=== PATIENT | female | born 1970 | race Caucasian/White ===

== ENCOUNTER 2017-07-04 23:28 | Emergency (ER) | payer OTHER, MEDICAID ==
[~2017-07-04] VITALS: Ht 165.1 cm; Wt 104.4 kg
[~2017-07-04 23:28] MED LIST: DICL50TA3 PO; GLIP5TAB15 PO; GLYB1.2538 PO; LEVO175T2 PO
[2017-07-04 23:33] VITALS: BP 146/95; PULSE 88; RESP 16; TEMP 98.4; O2SAT 96
[2017-07-04] MEDS ORDERED: VITA1000 PO (23:55)
[2017-07-04] MEDS ORDERED: CANA100T PO (23:55)
[2017-07-04] MEDS ORDERED: LEVO175T2 PO (23:55)
[2017-07-05 00:07] LABS: BLOOD, URINE NEG (NEG); GLUCOSE,URINE 1000 OR GREATER mg/dL (NEG); KETONE, URINE NEG (NEG); NITRITE,URINE NEG (NEG); PH, URINE 5.5 (5.0-8.5)
--- NOTE | 2017-07-05 00:11 | PD ---
HPI Chief Complaint: Complaint Time Seen by Provider: 00:02 Travel History International Travel<30 days: No Contact w/Intl Traveler<30days: No Traveled to known affect area: No History of Present Illness HPI The patient is a 46-year-old female that complains of urgency and frequency for one month. She denies any dysuria. She denies any fever, nausea, vomiting or diarrhea. She does have some flank pain and some low back pain. The patient has diabetes and takes by Bydorian and invokana, for this. Her last sugar at home several days ago was in the 200 range. PFSH Past Medical History Blood Disorders: No Cancer: Yes (SKIN) Diabetes: Yes Patient Takes Glucophage: No Diminished Hearing: No Musculoskeletal: Yes (FRACTURED LEFT 5TH TOE) Thyroid Disease: Yes ?: Not Menopausal: Yes : 2 Para: 2 Tubal Ligation: Yes Past Surgical History Abdominal Surgery: Yes (HERNIA, RT HEMICOLECTOMY, COLOSTOMY W/REVERSAL) Cholecystectomy: Yes Hysterectomy: Yes Tonsillectomy: Yes Other Surgery: Yes (BASAL CELL CARCINOMA REMOVAL FACE) Social History Alcohol Use: Yes (ONCE AMONTH MAYBE) Tobacco Use: No Substance Use: No Allergies-Medications (Allergen,Severity, Reaction): Coded Allergies: No Known Allergies (Verified , 05/26/15) Reported Meds & Prescriptions Reported Meds & Active Scripts Active Reported Vitamin D-1000 (Cholecalciferol) 1,000 Unit Tab 1,000 Units PO DAILY Invokana (Canagliflozin) 100 Mg Tab 100 Mg PO DAILY Take before 1st meal of day. Levothyroxine (Levothyroxine Sodium) 175 Mcg Tab 175 Mcg PO DAILY Review of Systems Except as stated in HPI: all other systems reviewed are Neg Physical Exam Narrative GENERAL: Well-nourished, alert and oriented, obese patient in minimal apparent distress with her right flank pain and low back pain. Her vital signs show blood pressure 146/95 but otherwise normal. SKIN: Focused skin assessment warm/dry. HEAD: Normocephalic. EYES: No scleral icterus. No injection or drainage. NECK: Supple, trachea midline. No JVD or lymphadenopathy. CARDIOVASCULAR: Regular rate and rhythm without murmurs, gallops, or rubs. RESPIRATORY: Breath sounds equal bilaterally. No accessory muscle use. GASTROINTESTINAL: Abdomen soft, with some slight discomfort to direct palpation in the midline suprapubic area, nondistended. No guarding or rebound is present. There is some slight right flank tenderness present. MUSCULOSKELETAL: No cyanosis, or edema. I cannot reproduce any pain by pressing on the low back area. BACK: Nontender without obvious deformity. No CVA tenderness. Data Data Last Documented VS Vital Signs Date Time Temp Pulse Resp B/P (MAP) Pulse Ox O2 Delivery O2 Flow Rate FiO2 07/04/17 23:33 98.4 88 16 146/95 (112) 96 Orders Orders Urinalysis - C+S If Indicated (07/04/17 23:52) Blood Glucose (07/05/17 00:30) Labs Laboratory Tests Test 07/04/17 23:50 Urine Color YELLOW Urine Turbidity CLEAR Urine pH 5.5 Urine Specific [place] GREATER THAN 1.035 Urine Protein NEG mg/dL Urine Glucose (UA) 1000 OR GREATER mg/dL Urine Ketones NEG mg/dL Urine Occult Blood NEG Urine Nitrite NEG Urine Bilirubin NEG Urine Leukocyte Esterase NEG Urine RBC 0-2 /hpf Urine WBC 0-2 /hpf Urine Squamous Epithelial Cells 0-5 /hpf Urine Bacteria NONE /hpf Microscopic Urinalysis Comment CULT NOT INDICATED MDM Medical Decision Making Medical Screen Exam Complete: Yes Emergency Medical Condition: Yes Medical Record Reviewed: Yes Interpretation(s) The urine shows specific gravity greater than 1.035 with 1000 or greater glucose but is otherwise normal and culture is not indicated. The blood glucose by Accu-Chek is 200. Differential Diagnosis Cystitis, pyelonephritis, colitis-unlikely Narrative Course There is no evidence for urinary tract infection with a urine. Apparently, the patient is urinating frequently because of her elevated blood sugar. SHe should follow-up with her primary care physician. Diagnosis Primary Impression: Hyperglycemia Additional Impression: Poorly controlled diabetes mellitus Additional Instructions: As we discussed, follow-up with your primary care physician regarding the elevated blood sugar. Apparently this is the reason you are urinating so frequently. Med/Other Pt SpecificInfo: No Change to Meds Disposition: 01 DISCHARGE HOME Condition: Stable Joey Chow MD Jul 05, 2017 00:11
[2017-07-05 00:16] LABS: URINE COLOR YELLOW (YELLW/STRAW)
[2017-07-05 00:17] LABS: COMMENT (UR) CULT NOT INDICATED; CULTURE IF INDICATED CULT NOT INDICATED; RBC, URINE 0-2 /hpf (0-3); SQUAMOUS EPITHELIAL CELL URINE 0-5 /hpf (0-5); WBC, URINE 0-2 /hpf (0-5)
[2017-07-05] MEDS ORDERED: KETOROLAC TROMETHAMINE 60 MG/2 ML (IM) VIAL IM ONE (00:45)
== END 2017-07-05 01:05 | disposition home or self-care (01) ==
LOC: PHED 23:28
DX: E11.65 Type 2 diabetes mellitus with hyperglycemia (principal); R10.9 Unspecified abdominal pain; M54.5 Low back pain; E11.9 Type 2 diabetes mellitus without complications; E07.9 Disorder of thyroid, unspecified; Z79.899 Other long term (current) drug therapy
CPT/HCPCS: 81001; 96372; 99284; J1885

== ENCOUNTER 2017-08-09 12:19 | Emergency (ER) | payer OTHER, MEDICAID ==
[~2017-08-09] VITALS: Ht 165.1 cm; Wt 105.0 kg
[~2017-08-09 12:19] MED LIST changes: +CANA100T PO; -DICL50TA3 PO; -GLIP5TAB15 PO; -GLYB1.2538 PO; +VITA1000 PO
[2017-08-09 12:31] VITALS: BP 165/77; PULSE 78; RESP 16; TEMP 98; O2SAT 98
--- NOTE | 2017-08-09 13:05 | PD ---
HPI Chief Complaint: Skin Problem Time Seen by Provider: 13:03 Travel History International Travel<30 days: No Contact w/Intl Traveler<30days: No Traveled to known affect area: No History of Present Illness HPI 46-year-old female presents the emergency department with hot red swollen abscess to the proximal right thigh, which the patient states started several days ago. It is become more erythematous, swollen, and painful. She denies fever, chills, or previous history of similar abscess. Pain is currently 8 out of 10. She has no known drug allergies. PFSH Past Medical History Blood Disorders: No Cancer: Yes (SKIN) Diabetes: Yes Patient Takes Glucophage: No Diminished Hearing: No Musculoskeletal: Yes (FRACTURED LEFT 5TH TOE) Thyroid Disease: Yes Influenza Vaccination: Yes ?: Not Menopausal: Yes : 2 Para: 2 Tubal Ligation: Yes Past Surgical History Abdominal Surgery: Yes (HERNIA, RT HEMICOLECTOMY, COLOSTOMY W/REVERSAL) Cholecystectomy: Yes Genitourinary Surgery: Yes (Bladder x2) Hysterectomy: Yes Tonsillectomy: Yes Other Surgery: Yes (BASAL CELL CARCINOMA REMOVAL FACE, turmor removed from ankle) Social History Alcohol Use: Yes (ONCE AMONTH MAYBE) Tobacco Use: No Substance Use: No Allergies-Medications (Allergen,Severity, Reaction): Coded Allergies: No Known Allergies (Verified Adverse Reaction, Unknown, 08/09/17) Reported Meds & Prescriptions Reported Meds & Active Scripts Active Reported Invokana (Canagliflozin) 100 Mg Tab 100 Mg PO DAILY Take before 1st meal of day. Levothyroxine (Levothyroxine Sodium) 175 Mcg Tab 175 Mcg PO DAILY Review of Systems Except as stated in HPI: all other systems reviewed are Neg General / Constitutional: No: Fever Eyes: No: Visual changes HENT: No: Headaches Cardiovascular: No: Chest Pain or Discomfort Respiratory: No: Shortness of Breath Gastrointestinal: No: Abdominal Pain Genitourinary: No: Dysuria Musculoskeletal: No: Pain Skin: Positive Lesions (see history present illness.), No Rash Neurologic: No: Weakness Psychiatric: No: Depression Endocrine: No: Polydipsia Hematologic/Lymphatic: No: Easy Bruising Physical Exam Narrative GENERAL: Patient appears in mild distress. SKIN: Warm and dry. Normal color. Normal turgor. Patient has indurated, elevated, erythematous, warm abscess to the right proximal medial thigh with pointing, but without spontaneous drainage. Erythema measures approximately 3 cm x 6 cm HEAD: Atraumatic. Normocephalic. EYES: Pupils equal and round. No scleral icterus. No injection or drainage. ENT: No nasal bleeding or discharge. Mucous membranes pink and moist. NECK: Trachea midline. Supple and nontender. CARDIOVASCULAR: Regular rate and rhythm. RESPIRATORY: No accessory muscle use. Clear to auscultation. Breath sounds equal bilaterally. MUSCULOSKELETAL: Extremities without clubbing, cyanosis, or edema. No obvious deformities. NEUROLOGICAL: Awake and alert. No obvious cranial nerve deficits. Motor grossly within normal limits. Five out of 5 muscle strength in the arms and legs. Normal speech. PSYCHIATRIC: Appropriate mood and affect; insight and judgment normal. Data Data Last Documented VS Vital Signs Date Time Temp Pulse Resp B/P (MAP) Pulse Ox O2 Delivery O2 Flow Rate FiO2 08/09/17 12:31 98.0 78 16 165/77 (106) 98 Orders Orders Lidocai-Epi 1%-1:100,000 Inj (Xylocaine- (08/09/17 13:15) Wound Culture And Gram Stain (08/09/17 13:14) MDM Medical Decision Making Medical Screen Exam Complete: Yes Emergency Medical Condition: Yes Differential Diagnosis Cellulitis. Abscess. I&D. Possible MRSA. Narrative Course Patient is medically stable at time of exam. I&D of abscess is performed and packing is placed. Wound culture is sent to the lab. Patient will be placed on Bactrim twice a day for 7 days. Patient take ibuprofen and Tylenol as needed for pain. She should follow up in 2 days for wound check and packing removal. Work note given. Diagnosis Primary Impression: Abscess of right thigh Patient Instructions: Abscess Incision and Drainage (DC), General Instructions Departure Forms: Work Release Enter return to work date: Aug 11, 2017 Additional Instructions: I&D of abscess is performed and packing is placed. Wound culture is sent to the lab. Patient will be placed on Bactrim twice a day for 7 days. Patient take ibuprofen and Tylenol as needed for pain. She should follow up in 2 days for wound check and packing removal. Work note given. Med/Other Pt SpecificInfo: Prescription(s) given Disposition: 01 DISCHARGE HOME Condition: Stable Tad Leavitt Aug 09, 2017 13:05
[2017-08-09] MEDS ORDERED: LIDOCAINE 1%/EPINEPHrine 1:100,000 SOLN 20 ML VIAL INFIL ONE (13:15)
[2017-08-09] MEDS ORDERED: IBUP1TAB7 PO (13:59)
[2017-08-09] MEDS ORDERED: BACT800T5 PO (13:59)
== END 2017-08-09 14:53 | disposition home or self-care (01) ==
LOC: PHED 12:19 → PHEFT 14:53
DX: L02.415 Cutaneous abscess of right lower limb (principal); B95.1 Streptococcus, group B, as the cause of diseases classified elsewhere; E11.9 Type 2 diabetes mellitus without complications; E07.9 Disorder of thyroid, unspecified; Z79.84 Long term (current) use of oral hypoglycemic drugs; Z85.828 Personal history of other malignant neoplasm of skin
CPT/HCPCS: 10061; 86403; 87070; 87205

== ENCOUNTER 2017-08-11 10:28 | Emergency (ER) | payer MEDICAID, OTHER ==
[~2017-08-11] VITALS: Ht 165.1 cm; Wt 105.3 kg
[~2017-08-11 10:28] MED LIST changes: +BACT800T5 PO; +IBUP1TAB7 PO; -VITA1000 PO
[2017-08-11 10:34] VITALS: BP 140/65; PULSE 85; RESP 15; TEMP 98; O2SAT 97
[2017-08-11] MEDS ORDERED: EXENINJ SQ (10:52)
[2017-08-11] MEDS ORDERED: CEPH-460 PO (10:57)
--- NOTE | 2017-08-11 10:59 | PD ---
HPI Chief Complaint: Wound/Suture/Staple Re-Check Time Seen by Provider: 10:56 Travel History International Travel<30 days: No Contact w/Intl Traveler<30days: No Traveled to known affect area: No History of Present Illness HPI Examined in the presence of a female nurse at all times. 46-year-old female here for wound recheck. The patient was seen here on August 09 for treatment of abscess/cellulitis to the right thigh. Incision and drainage was performed. She presents for packing removal. She believes that the redness may be slightly increased from when she was seen here 2 days ago. Denies fevers. She endorses pain, throbbing, worse with palpation. No other complaints. PFSH Past Medical History Blood Disorders: No Cancer: Yes (SKIN) Diabetes: Yes Diminished Hearing: No Musculoskeletal: Yes (FRACTURED LEFT 5TH TOE) Thyroid Disease: Yes ?: Not Menopausal: Yes : 2 Para: 2 Tubal Ligation: Yes Past Surgical History Abdominal Surgery: Yes (HERNIA, RT HEMICOLECTOMY, COLOSTOMY W/REVERSAL) Cholecystectomy: Yes Genitourinary Surgery: Yes (Bladder x2) Hysterectomy: Yes Tonsillectomy: Yes Other Surgery: Yes (BASAL CELL CARCINOMA REMOVAL FACE, turmor removed from ankle) Social History Alcohol Use: Yes (ONCE AMONTH MAYBE) Tobacco Use: No Substance Use: No Allergies-Medications (Allergen,Severity, Reaction): Coded Allergies: No Known Allergies (Verified Adverse Reaction, Unknown, 08/11/17) Reported Meds & Prescriptions Reported Meds & Active Scripts Active Keflex (Cephalexin) 500 Mg Cap 500 Mg PO Q8H Ibuprofen 800 Mg Tab 800 Mg PO Q8H PRN Bactrim DS (Sulfamethoxazole-Trimethoprim) 800-160 Mg Tab 1 Tab PO BID Reported Bydureon Inj (Exenatide) 2 Mg Vial 2 Mg SQ Q7D Invokana (Canagliflozin) 100 Mg Tab 100 Mg PO DAILY Take before 1st meal of day. Levothyroxine (Levothyroxine Sodium) 175 Mcg Tab 175 Mcg PO DAILY Review of Systems General / Constitutional: No: Fever, Chills Skin: Positive Other (skin redness, pain) Physical Exam Narrative GENERAL: Well-nourished female in no acute distress SKIN: Warm and dry. Erythema noted to the medial right thigh. Small incision with packing in place. No fluctuance or drainage. CARDIOVASCULAR: Regular rate and rhythm. No murmur appreciated. RESPIRATORY: No accessory muscle use. Clear to auscultation. Breath sounds equal bilaterally. MUSCULOSKELETAL: No obvious deformities. No clubbing. No cyanosis. No edema. Data Data Last Documented VS Vital Signs Date Time Temp Pulse Resp B/P (MAP) Pulse Ox O2 Delivery O2 Flow Rate FiO2 08/11/17 10:34 98.0 85 15 140/65 (90) 97 Orders Orders Ed Discharge Order (08/11/17 10:57) MDM Medical Decision Making Medical Screen Exam Complete: Yes Emergency Medical Condition: Yes Medical Record Reviewed: Yes Differential Diagnosis Cellulitis, abscess, packing removal, erysipelas Narrative Course Packing was removed. Local wound care provided. Wound culture growing group A strep. The patient will be discharged with Keflex. Diagnosis Primary Impression: Cellulitis and abscess of right leg Additional Instructions: Medication as prescribed. Warm compresses several times a day 15 minutes at a time. Return for evidence of worsening infection. Med/Other Pt SpecificInfo: Prescription(s) given Scripts Cephalexin (Keflex) 500 Mg Cap 500 MG PO Q8H for Infection, #30 CAP 0 Refills Prov: Woody Rodriguez MD 08/11/17 Disposition: 01 DISCHARGE HOME Condition: Stable Jin Eubanks Aug 11, 2017 10:59
== END 2017-08-11 11:13 | disposition home or self-care (01) ==
LOC: PHEFT 10:28
DX: L02.415 Cutaneous abscess of right lower limb (principal); L03.115 Cellulitis of right lower limb; B95.1 Streptococcus, group B, as the cause of diseases classified elsewhere; E11.9 Type 2 diabetes mellitus without complications
CPT/HCPCS: 99283

== ENCOUNTER 2017-08-27 06:35 | Emergency (ER) | payer OTHER ==
[~2017-08-27] VITALS: Ht 162.6 cm; Wt 105.0 kg
[~2017-08-27 06:35] MED LIST changes: +CEPH-460 PO; +EXENINJ SQ
[2017-08-27 06:36] VITALS: BP 137/84; PULSE 83; RESP 18; TEMP 98.1; O2SAT 97
--- NOTE | 2017-08-27 07:04 | PD ---
HPI Chief Complaint: GI Complaint Time Seen by Provider: 07:04 Travel History International Travel<30 days: No Contact w/Intl Traveler<30days: No Traveled to known affect area: No History of Present Illness HPI 46-year-old female came to the emergency room with history of vomiting that started at 8:30 last night. Patient says that she had been feeling nauseous for couple hours before that. She had eaten couple chicken wings, avocado and honey prior to the onset. She also ate one small [place]. However once the vomiting started she has not eaten or drank anything. She has gone multiple times and each time it's a large quantity of emesis. No blood in her vomit. Patient has not had any diarrhea or stool output. Upon asking she says she has not passed any gas either. She seems little uncomfortable. Her last vomit was 2 hours ago. Vital signs were stable. Patient has history of diabetes. She says she checked her last sugar last night which was 250. She has run out of the strips and did not check her sugar this morning. No history of fever or chills. No known sick contacts. She says she has severe abdominal pain just before she has to vomit and during vomiting. It subsides when she has finished her emesis. [facility] Past Medical History Narrative Medical List of her past medical, surgical, social and family history is reviewed from the nursing note. Blood Disorders: No Cancer: Yes (SKIN) Diabetes: Yes Patient Takes Glucophage: No Diminished Hearing: No Musculoskeletal: Yes (FRACTURED LEFT 5TH TOE) Thyroid Disease: Yes (hypothyroid) Tetanus Vaccination: < 5 Years Influenza Vaccination: Yes ?: Not Menopausal: Yes : 2 Para: 2 Tubal Ligation: Yes Past Surgical History Abdominal Surgery: Yes (HERNIA, RT HEMICOLECTOMY, COLOSTOMY W/REVERSAL) Cholecystectomy: Yes Genitourinary Surgery: Yes (Bladder x2) Hysterectomy: Yes Tonsillectomy: Yes Other Surgery: Yes (BASAL CELL CARCINOMA REMOVAL FACE, turmor removed from ankle) Social History Alcohol Use: Yes (ONCE AMONTH MAYBE) Tobacco Use: No Substance Use: No Allergies-Medications (Allergen,Severity, Reaction): Coded Allergies: No Known Allergies (Verified Adverse Reaction, Unknown, 08/27/17) Comments No known drug allergies. Reported Meds & Prescriptions Reported Meds & Active Scripts Active Macrobid (Nitrofurantoin Monoh/Nitrofur Macro) 100 Mg Cap 100 Mg PO BID 10 Days Reglan (Metoclopramide HCl) 5 Mg Tab 5 Mg PO TIDAC Reported Bydureon Inj (Exenatide) 2 Mg Vial 2 Mg SQ Q7D Invokana (Canagliflozin) 100 Mg Tab 100 Mg PO DAILY Take before 1st meal of day. Levothyroxine (Levothyroxine Sodium) 175 Mcg Tab 175 Mcg PO DAILY Narrative Medication List of her home medications reviewed from the nursing note. Review of Systems Except as stated in HPI: all other systems reviewed are Neg Gastrointestinal: Positive: Nausea, Vomiting Physical Exam Narrative GENERAL: Awake, alert, mild distress SKIN: Focused skin assessment warm/dry. HEAD: Atraumatic. Normocephalic. EYES: Pupils equal and round. No scleral icterus. No injection or drainage. ENT: No nasal bleeding or discharge. Dry mucous membrane and coated tongue NECK: Trachea midline. No JVD. CARDIOVASCULAR: Regular rate and rhythm. No murmur appreciated. RESPIRATORY: No accessory muscle use. Clear to auscultation. Breath sounds equal bilaterally. GASTROINTESTINAL: Abdomen soft, non-tender, nondistended. Hyperactive bowel sounds that are loud and tinkling to some extent. Hepatic and splenic margins not palpable. MUSCULOSKELETAL: No obvious deformities. No clubbing. No cyanosis. No edema. NEUROLOGICAL: Awake and alert. No obvious cranial nerve deficits. Motor grossly within normal limits. Normal speech. PSYCHIATRIC: Appropriate mood and affect; insight and judgment normal. Data Data Last Documented VS Orders Orders Complete Blood Count With Diff (08/27/17 07:08) Comprehensive Metabolic Panel (08/27/17 07:08) Lipase (08/27/17 07:08) Urinalysis - C+S If Indicated (08/27/17 07:08) Abdomen, Flat & Upright (08/27/17 ) Iv Access Insert/Monitor (08/27/17 07:08) Ecg Monitoring (08/27/17 07:08) Oximetry (08/27/17 07:08) Ondansetron Inj (Zofran Inj) (08/27/17 07:15) Sodium Chlor 0.9% 1000 Ml Inj (Ns 1000 M (08/27/17 07:08) Sodium Chloride 0.9% Flush (Ns Flush) (08/27/17 07:15) Blood Glucose (08/27/17 07:08) Urine Culture (08/27/17 09:15) Nitrofurantoin Monohyd Macrocr (Macrobid (08/27/17 10:30) Metoclopramide Inj (Reglan Inj) (08/27/17 10:45) Ed Discharge Order (08/27/17 10:59) Labs Laboratory Tests Test 08/27/17 07:40 08/27/17 09:15 White Blood Count 10.4 TH/MM3 Red Blood Count 5.06 MIL/MM3 Hemoglobin 15.3 GM/DL Hematocrit 44.2 % Mean Corpuscular Volume 87.3 FL Mean Corpuscular Hemoglobin 30.2 PG Mean Corpuscular Hemoglobin Concent 34.6 % Red Cell Distribution Width 13.6 % Platelet Count 247 TH/MM3 Mean Platelet Volume 8.2 FL Neutrophils (%) (Auto) 63.2 % Lymphocytes (%) (Auto) 27.3 % Monocytes (%) (Auto) 7.6 % Eosinophils (%) (Auto) 1.1 % Basophils (%) (Auto) 0.8 % Neutrophils # (Auto) 6.6 TH/MM3 Lymphocytes # (Auto) 2.8 TH/MM3 Monocytes # (Auto) 0.8 TH/MM3 Eosinophils # (Auto) 0.1 TH/MM3 Basophils # (Auto) 0.1 TH/MM3 CBC Comment DIFF FINAL Differential Comment Blood Urea Nitrogen 12 MG/DL Creatinine 0.71 MG/DL Random Glucose 225 MG/DL Total Protein 8.0 GM/DL Albumin 3.9 GM/DL Calcium Level 9.2 MG/DL Alkaline Phosphatase 85 U/L Aspartate Amino Transf (AST/SGOT) 44 U/L Alanine Aminotransferase (ALT/SGPT) 72 U/L Total Bilirubin 0.9 MG/DL Sodium Level 135 MEQ/L Potassium Level 3.7 MEQ/L Chloride Level 101 MEQ/L Carbon Dioxide Level 26.8 MEQ/L Anion Gap 7 MEQ/L Estimat Glomerular Filtration Rate 89 ML/MIN Lipase 161 U/L Urine Color YELLOW Urine Turbidity HAZY Urine pH 6.0 Urine Specific [place] 1.028 Urine Protein TRACE mg/dL Urine Glucose (UA) TRACE mg/dL Urine Ketones 10 mg/dL Urine Occult Blood NEG Urine Nitrite NEG Urine Bilirubin NEG Urine Urobilinogen LESS THAN 2.0 MG/DL Urine Leukocyte Esterase LARGE Urine RBC 2 /hpf Urine WBC 19 /hpf Urine Squamous Epithelial Cells 10 /hpf Urine Transitional Epithelial Cells <1 /hpf Urine Bacteria FEW /hpf Urine Mucus MANY /lpf Microscopic Urinalysis Comment CULTURE INDICATED MDM Medical Decision Making Medical Screen Exam Complete: Yes Emergency Medical Condition: Yes Medical Record Reviewed: Yes Differential Diagnosis Small bowel obstruction, gastroparesis, dehydration, electrolyte abnormality, DKA Narrative Course 8:11 AM awaiting for the blood test results. Patient is getting 1 L of IV fluid bolus and Zofran. 10:57 AM blood test results are back and they are within acceptable limit. Patient has some hyperglycemia. She was given a second IV fluid bolus and IV Reglan. In my opinion she has gastroparesis which is making her vomit. X-ray does not show any obstruction. Patient will be discharged home. Procedures EKG Prior to Arrival: No Diagnosis Primary Impression: Gastroparesis Additional Impressions: UTI (urinary tract infection) Qualified Codes: N39.0 - Urinary tract infection, site not specified Vomiting Qualified Codes: R11.2 - Nausea with vomiting, unspecified Hyperglycemia Referrals: Primary Care Physician Additional Instructions: Please return to the ER if the condition worsen or any other new concerns. Otherwise follow-up with your primary care. Take the medications as per the prescription direction. Med/Other Pt SpecificInfo: Prescription(s) given Scripts Nitrofurantoin Monohydrate Macrocrystals (Macrobid) 100 Mg Cap 100 MG PO BID for Infection for 10 Days, #20 CAP 0 Refills Prov: Gena Dickerson MD 08/27/17 Metoclopramide (Reglan) 5 Mg Tab 5 MG PO TIDAC, #15 TAB 0 Refills Prov: Gena Dickerson MD 08/27/17 Disposition: 01 DISCHARGE HOME Condition: Stable Gena Dickerson MD Aug 27, 2017 07:04
[2017-08-27] MEDS ORDERED: SODIUM CHLOR 0.9% 1000 ML INJ 1,000 ML IV SCH (07:08)
[2017-08-27] MEDS ORDERED: SODIUM CHLORIDE 0.9% FLUSH 10 ML FLUSH IV FLUSH PRN (07:15)
[2017-08-27] MEDS ORDERED: ONDANSETRON HCL 4 MG/2 ML VIAL IVP ONE (07:15)
[2017-08-27 07:50] LABS: AUTOMATED NEUTROPHIL # 6.6 TH/MM3 (1.8-7.7); BASOPHIL # 0.1 TH/MM3 (0-0.2); BASOPHIL % 0.8 % (0.0-2.0); EOSINOPHIL # 0.1 TH/MM3 (0-0.4); EOSINOPHIL % 1.1 % (0.0-4.0); HEMATOCRIT 44.2 % (35.0-46.0); HEMO FLAGS DIFF FINAL; LYMPH % 27.3 % (9.0-44.0); LYMPHOCYTE # 2.8 TH/MM3 (1.0-4.8); MEAN CELL VOLUME 87.3 FL (80.0-100.0); MEAN CORPUSCULAR HEMOGLOBIN 30.2 PG (27.0-34.0); MEAN CORPUSCULAR HGB CONC 34.6 % (32.0-36.0); MONO % 7.6 % (0.0-8.0); NEUT % 63.2 % (16.0-70.0); PLATELET COUNT 247 TH/MM3 (150-450); RED BLOOD COUNT 5.06 MIL/MM3 (4.00-5.30); RED CELL DISTRIBUTION WIDTH 13.6 % (11.6-17.2); WHITE BLOOD COUNT 10.4 TH/MM3 (4.0-11.0)
[2017-08-27 08:05] VITALS: O2SAT 96
[2017-08-27 08:06] VITALS: BP 135/66; PULSE 75; RESP 18; O2SAT 96
--- NOTE | 2017-08-27 08:14 | RADRPT ---
EXAM DATE/TIME: 08/27/2017 07:47 [place] COMPARISON: No previous studies available for comparison. INDICATIONS : Abdomen pain, nausea and vomiting. MEDICAL HISTORY : None. SURGICAL HISTORY : Tubal ligation. Hysterectomy. Colostomy. Colectomy, 2 bladder surgeries, Gallbladder removed. ENCOUNTER: Initial ACUITY: 2 days PAIN SCORE: 8/10 LOCATION: Bilateral Abdomen. FINDINGS: Supine and upright views of the abdomen were performed. The abdominal bowel gas pattern is normal. A moderate amount of stool is seen involving the transverse colon and descending colon. A single air-f luid level seen involving the ascending colon. No abnormal masses, calcifications, or organomegaly is seen. Prior ventral hernia repair on the right. Cholecystectomy clips. The visualized lower lungs a re clear. No evidence of free intraperitoneal gas. The osseous structures are unremarkable. CONCLUSION: Moderate stool burden. Otherwise, normal bowel gas pattern. Jc Carroll Jr., MD on August 27, 2017 at 8:11 Board Certified Radiologist. This report was verified electronically.
[2017-08-27 08:20] LABS: ALT (GPT) 72 U/L (10-53); ANION GAP 7 MEQ/L (5-15); AST (GOT) 44 U/L (15-37); BICARBONATE 26.8 MEQ/L (21.0-32.0); BLOOD UREA NITROGEN 12 MG/DL (7-18); CHLORIDE 101 MEQ/L (98-107); GLOMERULAR FILTRATION RATE 89 ML/MIN (>89); POTASSIUM 3.7 MEQ/L (3.5-5.1); SODIUM (NA) 135 MEQ/L (136-145)
[2017-08-27 08:22] LABS: ALKALINE PHOSPHATASE 85 U/L (45-117); TOTAL BILIRUBIN ADULT 0.9 MG/DL (0.2-1.0)
[2017-08-27 09:20] VITALS: BP 143/68; PULSE 75; RESP 12; O2SAT 98
[2017-08-27 09:53] LABS: BACTERIA, URINE FEW /hpf; BLOOD, URINE NEG (NEG); COMMENT (UR) CULTURE INDICATED; CULTURE IF INDICATED CULTURE INDICATED; GLUCOSE,URINE TRACE mg/dL (NEG); KETONE, URINE 10 mg/dL (NEG); MUCUS URINE MANY /lpf (OCC); NITRITE,URINE NEG (NEG); SQUAMOUS EPITHELIAL CELL URINE 10 /hpf (0-5); TRANSITIONAL EPI CELLS, URINE <1 /hpf; URINE COLOR YELLOW (YELLW/STRAW)
[2017-08-27] MEDS ORDERED: NITROFURANTOIN MONOHYD MACROCR 100 MG CAP PO ONE (10:30)
[2017-08-27] MEDS ORDERED: METOCLOPRAMIDE HCL 10 MG/2 ML VIAL IV PUSH ONE (10:45)
[2017-08-27] MEDS ORDERED: REGL5TAB PO (10:59)
[2017-08-27] MEDS ORDERED: MACR100C2 PO (10:59)
== END 2017-08-27 11:56 | disposition home or self-care (01) ==
LOC: NEPE 06:35
DX: E11.43 Type 2 diabetes mellitus with diabetic autonomic (poly)neuropathy (principal); K31.84 Gastroparesis; N39.0 Urinary tract infection, site not specified; E11.65 Type 2 diabetes mellitus with hyperglycemia; R11.10 Vomiting, unspecified; E03.9 Hypothyroidism, unspecified; B96.89 Other specified bacterial agents as the cause of diseases classified elsewhere; K59.00 Constipation, unspecified; Z79.899 Other long term (current) drug therapy
CPT/HCPCS: 74020; 80053; 81001; 83690; 85025; 87086; 96361; 96374; 96375; 99284; J2405; J2765; J7030

== ENCOUNTER 2017-11-15 19:11 | Emergency (ER) | payer OTHER ==
[~2017-11-15] VITALS: Ht 162.6 cm; Wt 99.0 kg
[~2017-11-15 19:11] MED LIST changes: -BACT800T5 PO; -CEPH-460 PO; -IBUP1TAB7 PO; +MACR100C2 PO; +REGL5TAB PO
[2017-11-15 19:18] VITALS: BP 132/63; PULSE 97; RESP 18; TEMP 99.5; O2SAT 99
[2017-11-15] MEDS ORDERED: BACT800T5 PO (19:29)
[2017-11-15] MEDS ORDERED: METF1000 PO (19:29)
[2017-11-15] MEDS ORDERED: ATOR10TA15 PO (19:29)
[2017-11-15] MEDS ORDERED: DAPA1TAB3 PO (19:29)
[2017-11-15] MEDS ORDERED: LISI2.5T3 PO (19:29)
[2017-11-15] MEDS ORDERED: ONDANSETRON ODT 4 MG TAB PO ONE (20:00)
[2017-11-15] MEDS ORDERED: ZOFR4TAB3 SL (20:31)
[2017-11-15] MEDS ORDERED: ALBUAER3 INH (20:31)
[2017-11-15] MEDS ORDERED: PRED20 PO (20:31)
[2017-11-15] MEDS ORDERED: LEVA500T33 PO (20:31)
[2017-11-15] MEDS ORDERED: BENZ100 PO (20:31)
--- NOTE | 2017-11-15 20:32 | PD ---
HPI Chief Complaint: Cold / Flu Symptoms Time Seen by Provider: 20:11 Travel History International Travel<30 days: No Contact w/Intl Traveler<30days: No Traveled to known affect area: No History of Present Illness HPI This is a 47-year-old female here with cough 3 weeks. She reports the cough is now productive over the last 5 days. She is currently being treated for UTI. She reports yellow green colored sputum. Intermittent wheezing and shortness of breath with coughing episodes. Symptom severity is moderate. No aggravating factors. Symptoms slightly improved with Mucinex DM. She reports her blood no change in her blood sugars. She is also reporting nausea without vomiting or abdominal pain. She reports improvement of her UTI symptoms. No flank pain. PFSH Past Medical History Blood Disorders: No Cancer: Yes (SKIN) High Cholesterol: Yes Diabetes: Yes Patient Takes Glucophage: Yes (11-15-17 0900) Diminished Hearing: No Hypertension: Yes Musculoskeletal: Yes (FRACTURED LEFT 5TH TOE) Immunizations Current: Yes Thyroid Disease: Yes (hypothyroid) Tetanus Vaccination: > 5 Years Influenza Vaccination: Yes ?: Not Menopausal: Yes : 2 Para: 2 Tubal Ligation: Yes Past Surgical History Abdominal Surgery: Yes (HERNIA, RT HEMICOLECTOMY, COLOSTOMY W/REVERSAL) Cholecystectomy: Yes Genitourinary Surgery: Yes (Bladder x2) Hysterectomy: Yes (2001) Tonsillectomy: Yes Other Surgery: Yes (BASAL CELL CARCINOMA REMOVAL FACE, turmor removed from ankle) Social History Alcohol Use: Yes (ONCE AMONTH MAYBE) Tobacco Use: No Substance Use: No Allergies-Medications (Allergen,Severity, Reaction): Coded Allergies: No Known Allergies (Verified Adverse Reaction, Unknown, 11/15/17) Reported Meds & Prescriptions Reported Meds & Active Scripts Active Reported Bactrim DS (Sulfamethoxazole-Trimethoprim) 800-160 Mg Tab 1 Tab PO BID Farxiga (Dapagliflozin) 10 Mg Tab 10 Mg PO DAILY Lisinopril 2.5 Mg Tab 2.5 Mg PO DAILY Atorvastatin (Atorvastatin Calcium) 10 Mg Tab 10 Mg PO HS Metformin (Metformin HCl) 1,000 Mg Tab 1,000 Mg PO BIDPC Levothyroxine (Levothyroxine Sodium) 175 Mcg Tab 125 Mcg PO DAILY Review of Systems Except as stated in HPI: all other systems reviewed are Neg Eyes: No: Visual changes HENT: Positive: Congestion, No: Headaches Cardiovascular: No: Chest Pain or Discomfort Respiratory: Positive: Cough, Wheezing Gastrointestinal: Positive: Nausea, No: Abdominal Pain Physical Exam Narrative GENERAL: Alert and nontoxic-appearing 47-year-old female SKIN: Warm and dry. HEAD: Normocephalic. EYES: No injection or drainage. NECK: Supple. CARDIOVASCULAR: Regular rate and rhythm RESPIRATORY: Breath sounds equal bilaterally. No accessory muscle use. Harsh Rhonchorous cough. Slight expiratory wheeze. GASTROINTESTINAL: Abdomen soft, non-tender, nondistended. No rebound or guarding. MUSCULOSKELETAL: No cyanosis, or edema. BACK: Nontender without obvious deformity. No CVA tenderness. Data Data Last Documented VS Vital Signs Date Time Temp Pulse Resp B/P (MAP) Pulse Ox O2 Delivery O2 Flow Rate FiO2 11/15/17 19:18 99.5 97 18 132/63 (86) 99 Orders Orders Ondansetron Odt (Zofran Odt) (11/15/17 20:00) [facility] Medical Decision Making Medical Screen Exam Complete: Yes Emergency Medical Condition: Yes Differential Diagnosis Pneumonia, bronchitis, influenza Narrative Course This is a 47-year-old female here with cough 3 weeks. The cough is now productive with colored sputum. She has a harsh rhonchorous cough. She is well -appearing. Her vital signs are stable. She will be treated for bronchitis. Return precautions were discussed. Patient is stable and ready for discharge. Diagnosis Primary Impression: Bronchitis Referrals: Primary Care Physician Departure Forms: Tests/Procedures, Work Release Enter return to work date: Nov 18, 2017 Additional Instructions: Medications as directed. Follow-up the primary doctor. Rest and stay well hydrated. Return if he developed new or worsening symptoms. Scripts Benzonatate (Tessalon Perles) 100 Mg Cap 100 MG PO TID Y for COUGH, #12 CAP 0 Refills Prov: Kavita Taylor RESERVATION MANAGER 11/15/17 Albuterol 8.5 GM Inh (Proair Hfa 8.5 GM Inh) 90 Mcg/Act Aer 2 PUFF INH Q4-6H Y for SHORTNESS OF BREATH, #1 INHALER 0 Refills 108 mcg/actuation Prov: Kavita Taylor RESERVATION MANAGER 11/15/17 Prednisone (Prednisone) 20 Mg Tab 40 MG PO DAILY, #8 TAB 0 Refills Take 40 mg (2 tablets) daily for 5 days Prov: Kavita Taylor 11/15/17 Levofloxacin (Levaquin) 500 Mg Tablet 500 MG PO DAILY for Infection for 7 Days, #7 TAB 0 Refills Prov: Kavita Taylor 11/15/17 Disposition: 01 DISCHARGE HOME Condition: Stable Kavita Taylor Nov 15, 2017 20:32
[2017-11-15] MEDS ORDERED: ZOFR4TAB PO (20:36)
== END 2017-11-15 20:43 | disposition home or self-care (01) ==
LOC: PHEFT 19:11
DX: J40 Bronchitis, not specified as acute or chronic (principal); R06.02 Shortness of breath; E11.9 Type 2 diabetes mellitus without complications; I10 Essential (primary) hypertension
CPT/HCPCS: 99283